=== PATIENT | female | born 1955 | race Caucasian/White ===

== ENCOUNTER 2018-03-06 21:33 | Inpatient (IN) | payer OTHER ==
[2018-03-06] MEDS ORDERED: ACETAMINOPHEN 325 MG TAB (22:25)
[2018-03-06] MEDS: CEFEPIME 2GM/50 ML (PMX) 50 ML IVPB (22:27)
[2018-03-06] MEDS: SODIUM CHLORIDE 0.9% 1L BAG IV* (22:27)
[2018-03-06 22:33] LABS: ADD MAN DIFF? NO
[2018-03-06 22:44] LABS: WHITE BLOOD COUNT 6.4 10^3/ul (4.8-10.8)
[2018-03-06 22:44] LABS: BASOPHILS % 0.5 % (0.0-2.0); EOSINOPHILS # 0.1 10^3/ul (0.0-0.5); HEMATOCRIT 41.7 % (37.0-47.0); HEMOGLOBIN 13.7 g/dl (12.0-16.0); LYMPHOCYTES # 1.4 10^3/ul (0.8-2.9); LYMPHOCYTES % 21.7 % (15.0-51.0); MEAN CORPUSCULAR HEMOGLOBIN 30.4 pg (29.0-33.0); MEAN CORPUSCULAR HGB CONC 32.9 g/dl (32.0-37.0); MEAN CORPUSCULAR VOLUME 92.5 fl (82.0-101.0); MONOCYTE # 0.4 10^3/ul (0.3-0.9); MONOCYTES % 6.8 % (0.0-11.0); NEUTROPHIL # 4.4 10^3/ul (1.6-7.5); NEUTROPHILS % 68.7 % (39.0-77.0); PLATELET COUNT 145 10^3/UL (140-415); RED BLOOD COUNT 4.51 10^6/ul (4.20-5.40); RED CELL DISTRIBUTION WIDTH 13.7 % (11.5-14.5)
[2018-03-06 23:02] LABS: LACTIC ACID 1.8 mmol/L (0.5-2.0)
[2018-03-06 23:03] LABS: ANION GAP 13 (8-16); BLOOD UREA NITROGEN 14 mg/dl (7-20); CALCIUM 9.4 mg/dl (8.4-10.2); CARBON DIOXIDE 24 mmol/L (21-31); CHLORIDE 108 mmol/L (97-110); CREATININE 0.65 mg/dl (0.44-1.00); GLUCOSE 111 mg/dl (70-220); POTASSIUM 4.3 mmol/L (3.5-5.1); SODIUM 141 mmol/L (135-144)
[2018-03-06 23:05] LABS: INR 1.06; PROTIME 13.9 Sec (11.9-14.9); PT RATIO 1.1
[2018-03-06 23:06] LABS: PARTIAL THROMBOPLASTIN TIME 31.3 Sec (25.0-35.0)
[2018-03-06 23:13] LABS: B-TYPE NATRIURETIC PEPTIDE 279 PG/ML (0-125)
[2018-03-06 23:15] LABS: TROPONIN-I < 0.012 ng/ml (0.000-0.120)
[2018-03-06 23:34] LABS: ADD UMIC YES; UR AMORPHOUS CRYSTAL FEW /HPF (NONE SEEN); UR ASCORBIC ACID NEGATIVE (NEGATIVE); UR BILIRUBIN (Dip) NEGATIVE (NEGATIVE); UR BLOOD (Dip) NEGATIVE (NEGATIVE); UR CLARITY CLOUDY (CLEAR); UR COLOR YELLOW (YELLOW); UR GLUCOSE (Dip) NEGATIVE (NEGATIVE); UR KETONES (Dip) NEGATIVE (NEGATIVE); UR LEUKOCYTE ESTERASE (Dip) TRACE Leu/ul (NEGATIVE); UR NITRITE (Dip) NEGATIVE (NEGATIVE); UR RBC 1 /HPF (0-5); UR SPECIFIC GRAVITY (Dip) 1.016 (1.003-1.030); UR TOTAL PROTEIN (Dip) NEGATIVE (NEGATIVE); UR UROBILINOGEN (Dip) NEGATIVE (NEGATIVE); UR WBC 7 /HPF (0-5)
[2018-03-07] MEDS: ACETAMINOPHEN 325 MG TAB PO ×3 (01:21→16:26)
[2018-03-07] MEDS ORDERED: DOCUSATE SODIUM 100 MG CAP PO (02:30)
[2018-03-07] MEDS ORDERED: NACL 0.9% 3 ML SYG IV (02:30)
[2018-03-07] MEDS ORDERED: BISACODYL (EC) 5 MG TAB PO (02:30)
[2018-03-07] MEDS: ONDANSETRON 4 MG INJ IV (02:40)
[2018-03-07] MEDS: PANTOPRAZOLE (EC) 40 MG TAB PO (05:08)
[2018-03-07] MEDS: ALBUTEROL/IPRATROPIUM (NEB) 3 ML AMP HHN ×2 (05:17→09:14)
[2018-03-07 07:13] LABS: ADD MAN DIFF? NO
[2018-03-07 07:15] LABS: WHITE BLOOD COUNT 4.4 10^3/ul (4.8-10.8)
[2018-03-07 07:15] LABS: BASOPHILS % 0.2 % (0.0-2.0); EOSINOPHILS # 0.1 10^3/ul (0.0-0.5); EOSINOPHILS % 1.4 % (0.0-7.0); HEMATOCRIT 36.3 % (37.0-47.0); HEMOGLOBIN 12.2 g/dl (12.0-16.0); LYMPHOCYTES # 1.2 10^3/ul (0.8-2.9); LYMPHOCYTES % 27.2 % (15.0-51.0); MEAN CORPUSCULAR HGB CONC 33.6 g/dl (32.0-37.0); MEAN CORPUSCULAR VOLUME 92.1 fl (82.0-101.0); MEAN PLATELET VOLUME 10.7 fl (7.4-10.4); MONOCYTE # 0.3 10^3/ul (0.3-0.9); MONOCYTES % 7.8 % (0.0-11.0); NEUTROPHIL # 2.8 10^3/ul (1.6-7.5); NEUTROPHILS % 63.2 % (39.0-77.0); PLATELET COUNT 127 10^3/UL (140-415); RED BLOOD COUNT 3.94 10^6/ul (4.20-5.40); RED CELL DISTRIBUTION WIDTH 13.9 % (11.5-14.5)
[2018-03-07 07:29] LABS: HEMOGLOBIN A1C 5.6 % (0-5.9)
[2018-03-07 07:43] LABS: ALANINE AMINOTRANSFERASE 48 IU/L (13-69); ALKALINE PHOSPHATASE 88 IU/L (42-121); ANION GAP 12 (8-16); ASPARTATE AMINO TRANSFERASE 48 IU/L (15-46); BILIRUBIN,INDIRECT 0.8 mg/dl (0-1.1); BILIRUBIN,TOTAL 0.8 mg/dl (0.2-1.3); BLOOD UREA NITROGEN 10 mg/dl (7-20); CALCIUM 8.4 mg/dl (8.4-10.2); CARBON DIOXIDE 23 mmol/L (21-31); CHLORIDE 109 mmol/L (97-110); CREATININE 0.59 mg/dl (0.44-1.00); GLUCOSE 93 mg/dl (70-220); POTASSIUM 3.7 mmol/L (3.5-5.1); SODIUM 140 mmol/L (135-144); TOTAL PROTEIN 6.3 g/dl (6.1-8.1)
[2018-03-07 08:08] LABS: CHOLESTEROL 131 mg/dl (100-200)
[2018-03-07 08:08] LABS: CHOL/HDL RATIO 2.9 RATIO; HDL CHOLESTEROL 44 mg/dl (35-98); LDL CHOLESTEROL,CALCULATED 75 mg/dl; TRIGLYCERIDES 61 mg/dl (0-149)
[2018-03-07 08:11] LABS: MAGNESIUM 1.5 mg/dl (1.7-2.5)
[2018-03-07] MEDS ORDERED: NON-FORMULARY/PATIENT OWN MED (Omeprazole* 20 MG) PO (09:00)
[2018-03-07 09:09] LABS: HAAIG REFLEX REFLEX FILED
[2018-03-07] MEDS: CIPROFLOXACIN 200 MG/D5W IVPB 100 ML IVPB (10:15)
[2018-03-07] MEDS ORDERED: CEFTRIAXONE 1 GM INJ IVPB (12:00)
[2018-03-07] MEDS ORDERED: CEFTRIAXONE 1 GM/50 ML (PMX) 50 ML IVPB (12:00)
[2018-03-07 12:29] LABS: HEPATITIS B SURFACE ANTIGEN NEGATIVE (NEGATIVE)
[2018-03-07 12:46] LABS: HEPATITIS B SURFACE ANTIBODY NEGATIVE (NEGATIVE)
[2018-03-07 12:47] LABS: HEPATITIS B CORE ANTIBODY NEGATIVE (NEGATIVE); HEPATITIS C VIRAL ANTIBODY NEGATIVE (NEGATIVE)
[2018-03-07] MEDS: SUMATRIPTAN 6 MG/0.5 ML INJ SC (15:31)
[2018-03-07] MEDS: D5W-0.45 NACL + KCL 20 MEQ 1,000 ML IV ×2 (15:31→23:10)
[2018-03-07] MEDS: MAGNESIUM SULFATE 4 GM/100 ML 100 ML IVPB (15:32)
[2018-03-07] MEDS: CEFTRIAXONE 2 GM/NS 50 ML IVPB (15:33)
[2018-03-07] MEDS: METOCLOPRAMIDE 10 MG INJ IV (22:23)
[2018-03-07] MEDS ORDERED: MAGNESIUM SULFATE 2 GM/50 ML 50 ML IVPB (22:30)
[2018-03-08] MEDS: ACETAMINOPHEN 325 MG TAB PO ×2 (02:13→14:22)
[2018-03-08] MEDS: PANTOPRAZOLE (EC) 40 MG TAB PO (05:54)
[2018-03-08] MEDS: D5W-0.45 NACL + KCL 20 MEQ 1,000 ML IV ×4 (05:55→19:10)
[2018-03-08 06:55] LABS: ADD MAN DIFF? NO
[2018-03-08 07:06] LABS: BASOPHILS % 0.5 % (0.0-2.0); EOSINOPHILS # 0.1 10^3/ul (0.0-0.5); EOSINOPHILS % 2.2 % (0.0-7.0); HEMATOCRIT 37.3 % (37.0-47.0); HEMOGLOBIN 12.2 g/dl (12.0-16.0); LYMPHOCYTES # 1.1 10^3/ul (0.8-2.9); LYMPHOCYTES % 29.3 % (15.0-51.0); MEAN CORPUSCULAR HEMOGLOBIN 30.2 pg (29.0-33.0); MEAN CORPUSCULAR HGB CONC 32.7 g/dl (32.0-37.0); MEAN CORPUSCULAR VOLUME 92.3 fl (82.0-101.0); MEAN PLATELET VOLUME 10.4 fl (7.4-10.4); MONOCYTE # 0.3 10^3/ul (0.3-0.9); MONOCYTES % 6.8 % (0.0-11.0); NEUTROPHIL # 2.3 10^3/ul (1.6-7.5); NEUTROPHILS % 60.9 % (39.0-77.0); PLATELET COUNT 116 10^3/UL (140-415); RED BLOOD COUNT 4.04 10^6/ul (4.20-5.40); RED CELL DISTRIBUTION WIDTH 14.1 % (11.5-14.5)
[2018-03-08 07:06] LABS: WHITE BLOOD COUNT 3.7 10^3/ul (4.8-10.8)
[2018-03-08 07:28] LABS: ALANINE AMINOTRANSFERASE 52 IU/L (13-69); ALBUMIN 3.1 g/dl (3.3-4.9); ALBUMIN/GLOBULIN RATIO 0.91; ALKALINE PHOSPHATASE 89 IU/L (42-121); ANION GAP 10 (8-16); ASPARTATE AMINO TRANSFERASE 56 IU/L (15-46); BILIRUBIN,INDIRECT 0.4 mg/dl (0-1.1); BILIRUBIN,TOTAL 0.4 mg/dl (0.2-1.3); BLOOD UREA NITROGEN 7 mg/dl (7-20); CALCIUM 8.1 mg/dl (8.4-10.2); CARBON DIOXIDE 24 mmol/L (21-31); CHLORIDE 108 mmol/L (97-110); CREATININE 0.58 mg/dl (0.44-1.00); GLUCOSE 117 mg/dl (70-220); MAGNESIUM 2.1 mg/dl (1.7-2.5); PHOSPHORUS 2.5 mg/dl (2.5-4.9); POTASSIUM 3.9 mmol/L (3.5-5.1); SODIUM 138 mmol/L (135-144); TOTAL PROTEIN 6.5 g/dl (6.1-8.1)
[2018-03-08 07:34] LABS: TROPONIN-I < 0.012 ng/ml (0.000-0.120)
[2018-03-08 07:39] LABS: INR 1.14; PROTIME 14.8 Sec (11.9-14.9); PT RATIO 1.2
[2018-03-08] MEDS: METOCLOPRAMIDE 10 MG INJ IV ×3 (10:15→20:21)
[2018-03-08] MEDS: ENOXAPARIN 40 MG/0.4 ML SYG SC (10:17)
[2018-03-08] MEDS: morphine 2 MG INJ IV (14:11)
[2018-03-08] MEDS: CEFTRIAXONE 2 GM/NS 50 ML IVPB (16:45)
[2018-03-09] MEDS: ACETAMINOPHEN 325 MG TAB PO (01:49)
[2018-03-09] MEDS: D5W-0.45 NACL + KCL 20 MEQ 1,000 ML IV ×3 (03:21→14:10)
[2018-03-09 05:17] LABS: ADD MAN DIFF? NO
[2018-03-09 05:22] LABS: WHITE BLOOD COUNT 3.5 10^3/ul (4.8-10.8)
[2018-03-09 05:22] LABS: BASOPHILS % 0.3 % (0.0-2.0); EOSINOPHILS % 0.9 % (0.0-7.0); HEMATOCRIT 37.7 % (37.0-47.0); HEMOGLOBIN 12.7 g/dl (12.0-16.0); LYMPHOCYTES # 1.4 10^3/ul (0.8-2.9); LYMPHOCYTES % 40.9 % (15.0-51.0); MEAN CORPUSCULAR HEMOGLOBIN 30.2 pg (29.0-33.0); MEAN CORPUSCULAR HGB CONC 33.7 g/dl (32.0-37.0); MEAN CORPUSCULAR VOLUME 89.5 fl (82.0-101.0); MEAN PLATELET VOLUME 10.1 fl (7.4-10.4); MONOCYTE # 0.2 10^3/ul (0.3-0.9); MONOCYTES % 6.6 % (0.0-11.0); NEUTROPHIL # 1.8 10^3/ul (1.6-7.5); PLATELET COUNT 110 10^3/UL (140-415); RED BLOOD COUNT 4.21 10^6/ul (4.20-5.40); RED CELL DISTRIBUTION WIDTH 13.9 % (11.5-14.5)
[2018-03-09] MEDS: PANTOPRAZOLE (EC) 40 MG TAB PO (05:25)
[2018-03-09 05:32] LABS: ALANINE AMINOTRANSFERASE 47 IU/L (13-69); ALBUMIN 3.2 g/dl (3.3-4.9); ALBUMIN/GLOBULIN RATIO 0.91; ALKALINE PHOSPHATASE 95 IU/L (42-121); ANION GAP 12 (8-16); ASPARTATE AMINO TRANSFERASE 56 IU/L (15-46); BILIRUBIN,INDIRECT 0.3 mg/dl (0-1.1); BILIRUBIN,TOTAL 0.3 mg/dl (0.2-1.3); BLOOD UREA NITROGEN 9 mg/dl (7-20); CALCIUM 8.6 mg/dl (8.4-10.2); CARBON DIOXIDE 23 mmol/L (21-31); CHLORIDE 106 mmol/L (97-110); CREATININE 0.57 mg/dl (0.44-1.00); GLUCOSE 119 mg/dl (70-220); MAGNESIUM 1.5 mg/dl (1.7-2.5); PHOSPHORUS 3.3 mg/dl (2.5-4.9); SODIUM 137 mmol/L (135-144); TOTAL PROTEIN 6.7 g/dl (6.1-8.1)
[2018-03-09] MEDS: ENOXAPARIN 40 MG/0.4 ML SYG SC (09:00)
[2018-03-09] MEDS: ASA/ACETAMINOPHEN/CAFF TAB PO (12:35)
[2018-03-09] MEDS ORDERED: VANCOMYCIN IV PER PHARMACY XX (14:00)
[2018-03-09] MEDS: MAGNESIUM SULFATE 3 GM in DEXTROSE 5% 100 ML IVPB (14:03)
[2018-03-09] MEDS: CEFTRIAXONE 2 GM/NS 50 ML IVPB (15:00)
[2018-03-09] MEDS: VANCOMYCIN 1.25 GM in SOD CHLORIDE 0.9% 250 ML IVPB (15:30)
[2018-03-09] MEDS: CARBAMIDE PEROXIDE 6.5% 15ML OTIC BOTH EARS (21:11)
[2018-03-10] MEDS: ACETAMINOPHEN 325 MG TAB PO (02:14)
[2018-03-10] MEDS: VANCOMYCIN 1 GM 250 ML IVPB ×2 (02:14→16:00)
[2018-03-10] MEDS: PANTOPRAZOLE (EC) 40 MG TAB PO (05:18)
[2018-03-10] MEDS: D5W-0.45 NACL + KCL 20 MEQ 1,000 ML IV ×2 (05:19→11:15)
[2018-03-10 05:48] LABS: ADD MAN DIFF? NO
[2018-03-10 05:52] LABS: BASOPHILS % 0.3 % (0.0-2.0); EOSINOPHILS # 0.1 10^3/ul (0.0-0.5); EOSINOPHILS % 2.9 % (0.0-7.0); HEMATOCRIT 39.2 % (37.0-47.0); HEMOGLOBIN 12.8 g/dl (12.0-16.0); LYMPHOCYTES # 1.4 10^3/ul (0.8-2.9); LYMPHOCYTES % 41.9 % (15.0-51.0); MEAN CORPUSCULAR HEMOGLOBIN 29.9 pg (29.0-33.0); MEAN CORPUSCULAR HGB CONC 32.7 g/dl (32.0-37.0); MEAN CORPUSCULAR VOLUME 91.6 fl (82.0-101.0); MEAN PLATELET VOLUME 10.1 fl (7.4-10.4); MONOCYTE # 0.3 10^3/ul (0.3-0.9); MONOCYTES % 7.6 % (0.0-11.0); NEUTROPHIL # 1.6 10^3/ul (1.6-7.5); NEUTROPHILS % 46.7 % (39.0-77.0); PLATELET COUNT 111 10^3/UL (140-415); RED BLOOD COUNT 4.28 10^6/ul (4.20-5.40); RED CELL DISTRIBUTION WIDTH 13.9 % (11.5-14.5)
[2018-03-10 05:52] LABS: WHITE BLOOD COUNT 3.4 10^3/ul (4.8-10.8)
[2018-03-10 06:23] LABS: ALBUMIN 3.3 g/dl (3.3-4.9); ALBUMIN/GLOBULIN RATIO 0.94; ALKALINE PHOSPHATASE 101 IU/L (42-121); ANION GAP 11 (8-16); ASPARTATE AMINO TRANSFERASE 57 IU/L (15-46); BILIRUBIN,INDIRECT 0.3 mg/dl (0-1.1); BILIRUBIN,TOTAL 0.3 mg/dl (0.2-1.3); BLOOD UREA NITROGEN 10 mg/dl (7-20); CALCIUM 8.8 mg/dl (8.4-10.2); CARBON DIOXIDE 24 mmol/L (21-31); CHLORIDE 109 mmol/L (97-110); CREATININE 0.59 mg/dl (0.44-1.00); GLUCOSE 111 mg/dl (70-220); POTASSIUM 4.3 mmol/L (3.5-5.1); SODIUM 140 mmol/L (135-144); TOTAL PROTEIN 6.8 g/dl (6.1-8.1)
[2018-03-10 07:23] LABS: ALANINE AMINOTRANSFERASE 57 IU/L (13-69)
[2018-03-10] MEDS: CARBAMIDE PEROXIDE 6.5% 15ML OTIC BOTH EARS ×2 (08:38→21:36)
[2018-03-10] MEDS: ENOXAPARIN 40 MG/0.4 ML SYG SC (08:40)
[2018-03-10] MEDS: CEFTRIAXONE 2 GM/NS 50 ML IVPB (15:46)
[2018-03-10] MEDS: morphine LIQ (10 MG/5 ML) CUP PO (16:51)
[2018-03-10] MEDS: LACTOBACILLUS RHAMNOSUS CAP PO (21:36)
[2018-03-11 03:13] LABS: VANCOMYCIN,TROUGH 11.7 ug/ml (10.0-20.0)
[2018-03-11] MEDS: VANCOMYCIN 1 GM 250 ML IVPB ×2 (03:25→15:23)
[2018-03-11] MEDS: D5W-0.45 NACL + KCL 20 MEQ 1,000 ML IV ×2 (06:40→15:18)
[2018-03-11 07:07] LABS: ADD MAN DIFF? NO
[2018-03-11 07:15] LABS: BASOPHILS % 0.6 % (0.0-2.0); EOSINOPHILS # 0.1 10^3/ul (0.0-0.5); EOSINOPHILS % 3.5 % (0.0-7.0); HEMATOCRIT 37.3 % (37.0-47.0); HEMOGLOBIN 12.4 g/dl (12.0-16.0); LYMPHOCYTES # 1.6 10^3/ul (0.8-2.9); LYMPHOCYTES % 47.1 % (15.0-51.0); MEAN CORPUSCULAR HEMOGLOBIN 30.8 pg (29.0-33.0); MEAN CORPUSCULAR HGB CONC 33.2 g/dl (32.0-37.0); MEAN CORPUSCULAR VOLUME 92.8 fl (82.0-101.0); MEAN PLATELET VOLUME 10.4 fl (7.4-10.4); MONOCYTE # 0.3 10^3/ul (0.3-0.9); MONOCYTES % 8.4 % (0.0-11.0); NEUTROPHIL # 1.4 10^3/ul (1.6-7.5); NEUTROPHILS % 40.1 % (39.0-77.0); PLATELET COUNT 113 10^3/UL (140-415); RED BLOOD COUNT 4.02 10^6/ul (4.20-5.40)
[2018-03-11 07:15] LABS: WHITE BLOOD COUNT 3.5 10^3/ul (4.8-10.8)
[2018-03-11 08:02] LABS: INR 0.95; PROTIME 12.8 Sec (11.9-14.9)
[2018-03-11 08:19] LABS: ALANINE AMINOTRANSFERASE 46 IU/L (13-69); ALBUMIN 2.9 g/dl (3.3-4.9); ALBUMIN/GLOBULIN RATIO 0.85; ALKALINE PHOSPHATASE 100 IU/L (42-121); ANION GAP 11 (8-16); ASPARTATE AMINO TRANSFERASE 56 IU/L (15-46); BILIRUBIN,INDIRECT 0.3 mg/dl (0-1.1); BILIRUBIN,TOTAL 0.3 mg/dl (0.2-1.3); BLOOD UREA NITROGEN 10 mg/dl (7-20); CALCIUM 8.8 mg/dl (8.4-10.2); CARBON DIOXIDE 24 mmol/L (21-31); CHLORIDE 107 mmol/L (97-110); CREATININE 0.61 mg/dl (0.44-1.00); GLUCOSE 92 mg/dl (70-220); MAGNESIUM 1.6 mg/dl (1.7-2.5); PHOSPHORUS 3.4 mg/dl (2.5-4.9); POTASSIUM 4.2 mmol/L (3.5-5.1); SODIUM 138 mmol/L (135-144); TOTAL PROTEIN 6.3 g/dl (6.1-8.1)
[2018-03-11] MEDS: FAMOTIDINE 20 MG TAB PO (08:22)
[2018-03-11] MEDS: LACTOBACILLUS RHAMNOSUS CAP PO ×2 (08:22→20:45)
[2018-03-11 08:24] LABS: TROPONIN-I < 0.012 ng/ml (0.000-0.120)
[2018-03-11] MEDS: ENOXAPARIN 40 MG/0.4 ML SYG SC (08:24)
[2018-03-11] MEDS: CARBAMIDE PEROXIDE 6.5% 15ML OTIC BOTH EARS (08:25)
[2018-03-11] MEDS: MAGNESIUM OXIDE 400 MG TAB PO (12:35)
[2018-03-11] MEDS: CEFTRIAXONE 2 GM/NS 50 ML IVPB (14:52)
[2018-03-11] MEDS: GUAIFENESIN/DM 5ML CUP PO ×2 (18:14→22:08)
[2018-03-12] MEDS: VANCOMYCIN 1 GM 250 ML IVPB ×2 (03:15→15:42)
[2018-03-12] MEDS: D5W-0.45 NACL + KCL 20 MEQ 1,000 ML IV (03:18)
[2018-03-12] MEDS: GUAIFENESIN/DM 5ML CUP PO (03:18)
[2018-03-12 06:01] LABS: ADD MAN DIFF? NO
[2018-03-12 06:04] LABS: WHITE BLOOD COUNT 3.7 10^3/ul (4.8-10.8)
[2018-03-12 06:04] LABS: BASOPHILS % 0.3 % (0.0-2.0); EOSINOPHILS # 0.1 10^3/ul (0.0-0.5); EOSINOPHILS % 2.4 % (0.0-7.0); HEMATOCRIT 39.4 % (37.0-47.0); HEMOGLOBIN 13.2 g/dl (12.0-16.0); LYMPHOCYTES # 1.7 10^3/ul (0.8-2.9); LYMPHOCYTES % 44.6 % (15.0-51.0); MEAN CORPUSCULAR HEMOGLOBIN 30.4 pg (29.0-33.0); MEAN CORPUSCULAR HGB CONC 33.5 g/dl (32.0-37.0); MEAN CORPUSCULAR VOLUME 90.8 fl (82.0-101.0); MEAN PLATELET VOLUME 10.8 fl (7.4-10.4); MONOCYTE # 0.3 10^3/ul (0.3-0.9); MONOCYTES % 7.8 % (0.0-11.0); NEUTROPHIL # 1.7 10^3/ul (1.6-7.5); NEUTROPHILS % 44.6 % (39.0-77.0); PLATELET COUNT 131 10^3/UL (140-415); RED BLOOD COUNT 4.34 10^6/ul (4.20-5.40); RED CELL DISTRIBUTION WIDTH 13.5 % (11.5-14.5)
[2018-03-12 07:04] LABS: ANION GAP 13 (8-16); BLOOD UREA NITROGEN 9 mg/dl (7-20); CALCIUM 9.4 mg/dl (8.4-10.2); CARBON DIOXIDE 25 mmol/L (21-31); CHLORIDE 105 mmol/L (97-110); CREATININE 0.57 mg/dl (0.44-1.00); GLUCOSE 100 mg/dl (70-220); MAGNESIUM 1.6 mg/dl (1.7-2.5); PHOSPHORUS 3.3 mg/dl (2.5-4.9); POTASSIUM 4.1 mmol/L (3.5-5.1); SODIUM 139 mmol/L (135-144)
[2018-03-12] MEDS: FAMOTIDINE 20 MG TAB PO (08:52)
[2018-03-12] MEDS: LACTOBACILLUS RHAMNOSUS CAP PO ×2 (08:52→20:26)
[2018-03-12] MEDS: ENOXAPARIN 40 MG/0.4 ML SYG SC (08:55)
[2018-03-12] MEDS: ERTAPENEM SODIUM 1 GM in SOD CHLORIDE 0.9% 100 ML IVPB (14:52)
[2018-03-12] MEDS: ASA/ACETAMINOPHEN/CAFF TAB PO (15:52)
[2018-03-13] MEDS: VANCOMYCIN 1 GM 250 ML IVPB (02:53)
[2018-03-13 04:53] LABS: ADD MAN DIFF? NO
[2018-03-13 05:04] LABS: BASOPHILS % 0.3 % (0.0-2.0); EOSINOPHILS # 0.2 10^3/ul (0.0-0.5); EOSINOPHILS % 4.1 % (0.0-7.0); HEMATOCRIT 37.1 % (37.0-47.0); HEMOGLOBIN 12.4 g/dl (12.0-16.0); LYMPHOCYTES # 1.7 10^3/ul (0.8-2.9); LYMPHOCYTES % 44.7 % (15.0-51.0); MEAN CORPUSCULAR HEMOGLOBIN 30.4 pg (29.0-33.0); MEAN CORPUSCULAR HGB CONC 33.4 g/dl (32.0-37.0); MEAN CORPUSCULAR VOLUME 90.9 fl (82.0-101.0); MEAN PLATELET VOLUME 10.2 fl (7.4-10.4); MONOCYTE # 0.3 10^3/ul (0.3-0.9); MONOCYTES % 9.2 % (0.0-11.0); NEUTROPHIL # 1.5 10^3/ul (1.6-7.5); NEUTROPHILS % 41.4 % (39.0-77.0); PLATELET COUNT 135 10^3/UL (140-415); RED BLOOD COUNT 4.08 10^6/ul (4.20-5.40); RED CELL DISTRIBUTION WIDTH 13.5 % (11.5-14.5)
[2018-03-13 05:04] LABS: WHITE BLOOD COUNT 3.7 10^3/ul (4.8-10.8)
[2018-03-13 05:23] LABS: ANION GAP 12 (8-16); BLOOD UREA NITROGEN 13 mg/dl (7-20); CARBON DIOXIDE 26 mmol/L (21-31); CHLORIDE 107 mmol/L (97-110); CREATININE 0.62 mg/dl (0.44-1.00); GLUCOSE 101 mg/dl (70-220); MAGNESIUM 1.7 mg/dl (1.7-2.5); PHOSPHORUS 4.2 mg/dl (2.5-4.9); POTASSIUM 4.3 mmol/L (3.5-5.1); SODIUM 141 mmol/L (135-144)
[2018-03-13] MEDS: FAMOTIDINE 20 MG TAB PO ×2 (09:01→20:46)
[2018-03-13] MEDS: ENOXAPARIN 40 MG/0.4 ML SYG SC (09:03)
[2018-03-13] MEDS: LACTOBACILLUS RHAMNOSUS CAP PO ×2 (09:48→20:46)
[2018-03-13] MEDS: GUAIFENESIN/DM 5ML CUP PO (12:10)
[2018-03-13] MEDS: metroNIDAZOLE 500 MG TAB PO ×2 (14:29→20:46)
[2018-03-13] MEDS: CLINDAMYCIN 300 MG CAP PO ×2 (14:29→20:46)
[2018-03-13] MEDS ORDERED: ERTAPENEM SODIUM 1 GM in SOD CHLORIDE 0.9% 100 ML IVPB (15:00)
[2018-03-14] MEDS: metroNIDAZOLE 500 MG TAB PO (06:24)
[2018-03-14] MEDS: CLINDAMYCIN 300 MG CAP PO (06:24)
[2018-03-14 07:14] LABS: ADD MAN DIFF? NO
[2018-03-14 07:18] LABS: BASOPHILS % 0.7 % (0.0-2.0); EOSINOPHILS # 0.2 10^3/ul (0.0-0.5); EOSINOPHILS % 4.8 % (0.0-7.0); HEMATOCRIT 38.5 % (37.0-47.0); HEMOGLOBIN 12.8 g/dl (12.0-16.0); LYMPHOCYTES # 1.7 10^3/ul (0.8-2.9); LYMPHOCYTES % 39.4 % (15.0-51.0); MEAN CORPUSCULAR HEMOGLOBIN 30.5 pg (29.0-33.0); MEAN CORPUSCULAR HGB CONC 33.2 g/dl (32.0-37.0); MEAN CORPUSCULAR VOLUME 91.7 fl (82.0-101.0); MEAN PLATELET VOLUME 10.2 fl (7.4-10.4); MONOCYTE # 0.4 10^3/ul (0.3-0.9); MONOCYTES % 8.1 % (0.0-11.0); NEUTROPHILS % 46.8 % (39.0-77.0); PLATELET COUNT 172 10^3/UL (140-415); RED CELL DISTRIBUTION WIDTH 13.5 % (11.5-14.5)
[2018-03-14 07:18] LABS: WHITE BLOOD COUNT 4.3 10^3/ul (4.8-10.8)
[2018-03-14 07:39] LABS: ANION GAP 10 (8-16); BLOOD UREA NITROGEN 14 mg/dl (7-20); CALCIUM 9.2 mg/dl (8.4-10.2); CARBON DIOXIDE 27 mmol/L (21-31); CHLORIDE 106 mmol/L (97-110); CREATININE 0.68 mg/dl (0.44-1.00); GLUCOSE 117 mg/dl (70-220); MAGNESIUM 1.8 mg/dl (1.7-2.5); PHOSPHORUS 3.5 mg/dl (2.5-4.9); POTASSIUM 4.4 mmol/L (3.5-5.1); SODIUM 139 mmol/L (135-144)
[2018-03-14] MEDS: LACTOBACILLUS RHAMNOSUS CAP PO (08:56)
[2018-03-14] MEDS: FAMOTIDINE 20 MG TAB PO (08:57)
[2018-03-14] MEDS: ENOXAPARIN 40 MG/0.4 ML SYG SC (09:05)
== END 2018-03-14 13:30 | disposition home or self-care (01) | DRG 872 ==
LOC: 2NE 03-07 01:40 → E/R 21:33 → 2NE 03-07 00:54
PROVIDERS: Family Medicine
DX: A41.50 Gram-negative sepsis, unspecified (principal); N39.0 Urinary tract infection, site not specified; R10.32 Left lower quadrant pain; I10 Essential (primary) hypertension; G43.909 Migraine, unspecified, not intractable, without status migrainosus; J40 Bronchitis, not specified as acute or chronic
CPT/HCPCS: 36415; 70450; 71045; 74176; 76705; 80048; 80053; 80061; 80202; 81001; 83036; 83605; 83735; 83880; 84100; 84443; 84484; 85025; 85610; 85730; 86704; 86706; 86709; 86803; 87040; 87086; 87340; 87400; 93005; 94640; 94664; 96374; 99285-25; G0378